=== PATIENT | male | born 1990 | race Caucasian/White ===

== ENCOUNTER → 2016-12-30 | Outpatient (REF) | payer OTHER | LOC: M SFHCLERA 15:41 | PROVIDERS: ATTEND Physician Assistant | DX: R21 Rash and other nonspecific skin eruption (principal) ==

== ENCOUNTER → 2017-12-10 | Outpatient (REF) | payer OTHER ==
[2017-12-10 18:53] LABS: BASO % 0.8 % (0.0-1.0); EOS # 0.1 10^3/uL (0.0-0.50); EOS % 2.9 % (0.0-3.0); HEMATOCRIT 46.8 % (42.0-52.0); HEMOGLOBIN 16.1 g/dl (13.5-17.5); IMMATURE GRANULOCYTE % 0.2 % (0-3.0); LYMPH # 1.1 10^3/uL (1.5-6.5); LYMPH % 23.1 % (24.0-44.0); MEAN CORPUSCULAR HEMOGLOBIN 32.7 pg (27.0-33.0); MEAN CORPUSCULAR HGB CONC 34.4 g/dl (32.0-36.5); MEAN CORPUSCULAR VOLUME 95.1 fl (80.0-96.0); MONO # 0.6 10^3/uL (0.0-0.8); NEUTROPHILS # 2.9 10^3/uL (1.8-7.7); PLATELET COUNT, AUTOMATED 181 10^3/uL (150-450); RED BLOOD COUNT 4.92 10^6/uL (4.30-6.10); RED CELL DISTRIBUTION WIDTH 12.4 % (11.5-14.5); WHITE BLOOD COUNT 4.8 10^3/uL (4.0-10.0)
[2017-12-10 19:10] LABS: ESTIMATED AVERAGE GLUCOSE 100 MG/DL (60-110); HEMOGLOBIN A1c 5.1 %
[2017-12-10 19:53] LABS: ALBUMIN/GLOBULIN RATIO 1.38 (1.00-1.93); ALKALINE PHOSPHATASE 85 U/L (45-117); ALT/SGPT 47 U/L (12-78); ANION GAP 6 MEQ/L (8-16); AST/SGOT 56 U/L (7-37); BILIRUBIN,TOTAL 0.3 MG/DL (0.2-1.0); BLOOD UREA NITROGEN 22 MG/DL (7-18); CALCIUM LEVEL 8.8 MG/DL (8.5-10.1); CARBON DIOXIDE LEVEL 30 MEQ/L (21-32); CHLORIDE LEVEL 104 MEQ/L (98-107); CHOLESTEROL LEVEL 103 MG/DL (<200); CHOLESTEROL RISK RATIO 2.942 (<5); CREATININE FOR GFR 1.04 MG/DL (0.70-1.30); GLOMERULAR FILTRATION RATE > 60.0 (>60); GLUCOSE, FASTING 91 MG/DL (70-100); HDL CHOLESTEROL 35 MG/DL (>40); LDL CHOLESTEROL 41 MG/DL (<100); NON-HDL-C 68 MG/DL; POTASSIUM SERUM 5.2 MEQ/L (3.5-5.1); SODIUM LEVEL 140 MEQ/L (136-145); TOTAL PROTEIN 6.9 GM/DL (6.4-8.2); TRIGLYCERIDES LEVEL 133 MG/DL (<150)
[2017-12-12 09:56] LABS: TOTAL 25(OH) VITAMIN D 16.3 NG/ML (30.0-100.0)
[2017-12-12 09:57] LABS: FOLATE 17.2 NG/ML (>5.4)
== END ==
LOC: M SFHCPLAZ 10:38
DX: Z13.228 Encounter for screening for other metabolic disorders (principal); M79.604 Pain in right leg; E55.9 Vitamin D deficiency, unspecified

== ENCOUNTER → 2017-12-10 | Outpatient (CLI) | payer BC, OTHER | LOC: M LRY 10:42 | DX: M79.604 Pain in right leg (principal); M51.26 Other intervertebral disc displacement, lumbar region | CPT/HCPCS: 72110 ==

== ENCOUNTER → 2018-02-24 | Outpatient (REF) | payer OTHER | LOC: M SMT 13:14 | PROVIDERS: ATTEND Urology | DX: Z30.2 Encounter for sterilization (principal) ==

== ENCOUNTER → 2018-03-01 | Outpatient (CLI) | payer BC, OTHER ==
--- NOTE | 2018-03-01 12:47 | REP ---
MR LUMBAR SPINE WITHOUT CONTRAST: HISTORY: Degenerative disc disease. Decreased signal intensity on T2-weighted images is present in the L5-S1 intervertebral disc. The disc is decreased in height. These findings are consistent with disc degeneration. There is no disc bulge or herniation at the L1-2 level. The L1 nerves exit the neural foramina without compression. A diffuse disc bulge is present at the L2-3 level. There is minimal compression of the thecal sac. The L2 nerves exit then neural foramina without compression. A diffuse disc bulge is present at the L3-4 level. There is minimal compression of the thecal sac. There is hypertrophy of the posterior articulating facets. The L3 nerves exit the neural foramina without compression. A diffuse disc bulge and small central disc protrusion are present at the L4-5 level. There is hypertrophy of the ligamenta flava and posterior articulating facets. These findings produce minimal central canal stenosis. The L4 nerves exit the neural foramina without compression. A small central disc protrusion is present at the L5-S1 level. This abuts the thecal sac and S1 nerves. There is hypertrophy of the posterior articulating facets. The L5 nerves exit the neural foramina without compression. There is partial sacralization of the L5 vertebral body. The conus medullaris is normal in appearance terminating at the level of the T12-L1 intervertebral disc. Normal signal intensity is present in the lumbar vertebral bodies. IMPRESSION: 1. Diffuse disc bulges at the L2-3 and L3-4 levels with minimal thecal sac compression. 2. Minimal central canal stenosis at the L4-5 level secondary to disc bulge, disc protrusion, ligamentous and facet hypertrophy. 3. Small central disc protrusion at the L5-S1 level. This abuts the thecal sac and S1 nerves. Electronically Signed by Ld Hunter MD 03/01/2018 12:51 P
== END ==
LOC: M RAD 09:56
PROVIDERS: ATTEND Nurse Practitioner Family
DX: M51.37 Other intervertebral disc degeneration, lumbosacral region (principal); M51.26 Other intervertebral disc displacement, lumbar region; M51.27 Other intervertebral disc displacement, lumbosacral region; M48.061 Spinal stenosis, lumbar region without neurogenic claudication

== ENCOUNTER → 2018-05-01 | Outpatient (REF) | payer OTHER ==
[2018-05-01 13:45] LABS: SEMEN APPEARANCE OPAQUE (OPAQUE); SEMEN VISCOSITY LIQUID (LIQUID); SEMEN VOLUME 2.6 ml (4.0-5.0)
[2018-05-01 13:46] LABS: WBC CONCENTRATION >1 M/ml (<=1 M/ml)
== END ==
LOC: M SFHCPLAZ 12:53
PROVIDERS: ATTEND Urology
DX: Z98.52 Vasectomy status (principal)

== ENCOUNTER → 2019-10-29 | Outpatient (CLI) | payer BC, OTHER ==
--- NOTE | 2019-11-01 17:26 | SLEEPCENT ---
DATE: 10/29/2019 ORDERED BY: [place] [facility] Nocturnal polysomnography was performed for evaluation of sleep physiology in this patient with a history of excessive somnolence and nonrestorative sleep. For testing, the patient was fit with a [employer] simple full face mask of small size, 4 cm of water pressure were applied to the circuit and the lights were extinguished. Seven hours and 4 minutes of data were reviewed. There was 297.5 minutes of sleep identified. Sleep latency was prolonged at 97 minutes. REM latency was short at 22 minutes. Sleep architecture was fair with some fragmentation. There were 2-3 REM cycles noted. Overall sleep efficiency was 71.1%. The electrocardiogram showed a sinus rhythm with occasional PVCs. Average heart rate of 52 beats per minute. EEG showed fairly normal waveforms for wake and sleep. No focal changes were identified. There were only obstructive respiratory events identified of 10 seconds in duration or greater for an apnea- hypopnea index well within normal limits at 0.4. Snoring was however noted. The respiratory-related arousal index was 0.4. There were no significant oxygen desaturations appreciated. Limb activity was noted. There were two trains of 30 events and the limb movement arousal index was 12.9. IMPRESSIONS: 1. Periodic limb movement disorder (G47.61). Limb movement arousal index 12.9. 2. Snoring. RECOMMENDATION: The intervention to reduce the frequency of arousal from limb activity may improve the quality of the patient's sleep. CALDERON
== END ==
LOC: M SLEEP 20:00
PROVIDERS: ATTEND Nurse Practitioner Family
DX: R06.83 Snoring (principal); G47.61 Periodic limb movement disorder

== ENCOUNTER → 2024-09-24 | Outpatient (CLI) | payer BC, OTHER ==
[~2024-09-24] MED LIST: REFR0.5D8 OP
[2024-09-24 16:39] LABS: PLATELET COUNT, AUTOMATED 176 10^3/uL (150-450)
[2024-09-24 17:13] LABS: PROSTATIC SPECIFIC AG MONITOR 0.43 NG/ML (< 4.00)
[2024-09-24 17:17] LABS: ALT/SGPT 31 U/L (7.0-40); AST/SGOT 29 U/L (<34); CALCIUM LEVEL 9.1 MG/DL (8.5-10.1); CARBON DIOXIDE LEVEL 26 MMOL/L (20-31); CHLORIDE LEVEL 110 MMOL/L (98-107); CHOLESTEROL LEVEL 117 MG/DL (<200); CHOLESTEROL RISK RATIO 2.30 (<5); CREATININE FOR GFR 1.04 MG/DL (0.70-1.30); GLOMERULAR FILTRATION RATE > 90.0 (>60); LDL CHOLESTEROL 54.2 MG/DL (<100); NON-HDL-C 66.2 MG/DL; POTASSIUM SERUM 4.4 MMOL/L (3.5-5.1); SODIUM LEVEL 146 MMOL/L (136-145); TRIGLYCERIDES LEVEL 60 MG/DL (<150)
[2024-09-24 17:18] LABS: LUTEINIZING HORMONE < 0.1 mIU/ML (1.5-9.3)
[2024-09-24 17:19] LABS: ESTRADIOL 32.6 PG/ML (<39.8); TESTOSTERONE 323 NG/DL (241-827)
[2024-09-24 17:40] LABS: ESTIMATED AVERAGE GLUCOSE 97.0 MG/DL (60-110)
[2024-09-26 10:23] LABS: SEX HORMONE BINDING GLOBULIN 22 nmol/L (10-50)
[2024-10-01 14:56] LABS: IGF 1 Z SCORE MALE 0.1 SD (-2.0 - +2.0); SOMATOMEDIN-C INSULIN GROWTH. 152 ng/mL (53-331)
== END ==
LOC: M LAB 15:53
PROVIDERS: ATTEND Surgery Trauma Surgery
DX: Z00.01 Encounter for general adult medical examination with abnormal findings (principal); Z13.29 Encounter for screening for other suspected endocrine disorder; Z79.899 Other long term (current) drug therapy